=== PATIENT | female | born 1965 | race Caucasian/White ===

== ENCOUNTER → 2017-02-13 | Outpatient (CLI) | payer BC ==
[~2017-02-13] MED LIST: ANAPROX DS550 M1 PO; CLEOCIN300 MG PO; FLEXERIL10 MG PO; INDOCIN50 MG PO; MOBIC7.5 MG PO; PERCOCET 5/31 TABLET PO; PREDNISONE20 MG PO; ROBITUSSIN AC,T10 ML PO; TRAMADOL HCL50 MG PO; VENTOLIN HFA18 GM IH; ZOFRAN4 MG PO
== END | disposition home or self-care (01) ==
LOC: RAD 10:58
DX: R05 Cough (principal)
CPT/HCPCS: 71020

== ENCOUNTER 2017-03-12 21:04 | Emergency (ER) | payer BC ==
[~2017-03-12] VITALS: Ht 157.5 cm; Wt 110.2 kg
[2017-03-12 21:55] LABS: HEMATOCRIT 39.2 % (36.0-46.0); MCH 30.1 PG (29.0-34.0); MCHC 32.9 G/DL (30.0-36.0); MCV 91.6 FL (83-99); MEAN PLAT.VOLUME 10.4 uM^3 (9.5-12.4); PLATELET COUNT 273 K/uL (156-360); RBC DIS.WIDTH-CV 12.3 % (11.8-14.6); RBC DIS.WIDTH-SD 40.8 % (39-53); RED BLOOD COUNT 4.28 M/uL (3.80-5.20); WHITE BLOOD COUNT 12.7 K/uL (4.1-10.2)
[2017-03-12 22:07] LABS: CHLORIDE 103 mEq/L (99-109); POTASSIUM 4.1 mEq/L (3.7-5.4); SODIUM 139 mEq/L (136-147)
[2017-03-12 22:09] LABS: GLUCOSE 295 mg/dL (70-99)
[2017-03-12 22:11] LABS: ANION GAP 13 MEQ/L (2-14); TOTAL BILIRUBIN 0.4 mg/dL (0.0-1.0)
[2017-03-12 22:13] LABS: ALKALINE PHOSPHATASE 84 IU/L (3-129); GFR ESTIMATE (CALCULATED) > 59 mL/min/
[2017-03-12 22:14] LABS: UREA NITROGEN (BUN) 11 mg/dL (9-23)
[2017-03-12 22:16] LABS: LIPASE 49 U/L (1.0-51.0)
[2017-03-12 22:24] LABS: QUANTITATIVE HCG < 4.0 MIU/ML
[2017-03-13] MEDS ORDERED: LOSARTAN POTAS100 MG PO (04:29)
[2017-03-13] MEDS ORDERED: FORTAMET1000 M1 PO (04:30)
[2017-03-13 04:44] VITALS: BP 180/89
[2017-03-13 06:15] VITALS: BP 132/64
[2017-03-13 07:15] VITALS: BP 203/95
[2017-03-13 07:46] LABS: Estimated Average Glucose 226 mg/dL (70-123); HEMOGLOBIN A1c (GLYCOHEMOGLOB) 9.5 % HGB (Below 5.7)
[2017-03-13] MEDS ORDERED: HYDROCODON-ACE1 EAC7 PO (08:54)
[2017-03-13 09:45] LABS: POINT-OF-CARE METER ID UU13113675
[2017-03-13 11:00] VITALS: BP 160/97
[2017-03-13] MEDS ORDERED: SYMBICORT60 INHALA1 IH (14:49)
[2017-03-13 15:10] VITALS: BP 133/69
[2017-03-13 21:44] LABS: POINT-OF-CARE METER ID UU14162508
[2017-03-14 00:10] VITALS: BP 149/68
[2017-03-14 03:35] VITALS: BP 138/74
[2017-03-14 06:43] LABS: POINT-OF-CARE METER ID UU14162508
[2017-03-14 06:57] VITALS: BP 134/79
[2017-03-14 11:16] LABS: POINT-OF-CARE METER ID UU14162508
== END 2017-03-14 16:22 | disposition home or self-care (01) ==
LOC: EME 21:04 → 2EASTP 03-13 01:11 → EDOF 03-13 01:11 → 2EASTP 03-13 01:11
PROVIDERS: Surgery
PROC: 0WUF0JZ Supplement Abdominal Wall with Synthetic Substitute, Open Approach (ICD-10-PCS; principal; 2017-03-13)
DX: K43.6 Other and unspecified ventral hernia with obstruction, without gangrene (principal); J45.909 Unspecified asthma, uncomplicated; Z87.891 Personal history of nicotine dependence; I10 Essential (primary) hypertension; E66.01 Morbid (severe) obesity due to excess calories; Z68.41 Body mass index [BMI] 40.0-44.9, adult; E11.65 Type 2 diabetes mellitus with hyperglycemia; Z88.0 Allergy status to penicillin
CPT/HCPCS: 74177; 80053; 81003; 82948; 83036; 83605; 83690; 84702; 85027; 87040; 88302; 94640; 94640 76; 94799; 99202; 99281; 99285; C1781; G0378; J0690; J1815; J2250; J2270; J2405; J2765; J3010; J7030; J7120

== ENCOUNTER 2017-04-01 10:05 | Emergency (ER) | payer BC ==
[~2017-04-01] VITALS: Ht 157.5 cm; Wt 107.0 kg
[~2017-04-01 10:05] MED LIST changes: +FORTAMET1000 M1 PO; +HYDROCODON-ACE1 EAC7 PO; +LOSARTAN POTAS100 MG PO; +SYMBICORT60 INHALA1 IH
[2017-04-01 10:08] VITALS: BP 128/87
[2017-04-01] MEDS ORDERED: VIBRAMYCIN100 MG PO (12:05)
== END 2017-04-01 12:36 | disposition home or self-care (01) ==
LOC: EME 10:05
PROC: 0H9BXZZ Drainage of Right Upper Arm Skin, External Approach (ICD-10-PCS; principal; 2017-04-01)
DX: L02.411 Cutaneous abscess of right axilla (principal)
CPT/HCPCS: 99281; 99284

== ENCOUNTER 2018-03-16 09:44 | Emergency (ER) | payer OTHER ==
[~2018-03-16] VITALS: Ht 157.5 cm; Wt 102.5 kg
[~2018-03-16 09:44] MED LIST changes: +VIBRAMYCIN100 MG PO
[2018-03-16 11:15] LABS: HEMATOCRIT 42.1 % (36.0-46.0); HEMOGLOBIN 14.4 G/DL (11.9-15.5); MCH 31.4 PG (29.0-34.0); MCHC 34.2 G/DL (30.0-36.0); MCV 91.9 FL (83-99); PLATELET COUNT 252 K/uL (156-360); RBC DIS.WIDTH-CV 12.1 % (11.8-14.6); RBC DIS.WIDTH-SD 40.3 % (39-53); RED BLOOD COUNT 4.58 M/uL (3.80-5.20); WHITE BLOOD COUNT 10.3 K/uL (4.1-10.2)
[2018-03-16 11:53] LABS: CHLORIDE 98 MEQ/L (99-109); CREATININE 0.5 MG/DL (0.6-1.3); GFR ESTIMATE (CALCULATED) > 59 mL/min/; GLUCOSE 246 mg/dL (70-99); SODIUM 137 MEQ/L (136-147); UREA NITROGEN (BUN) 7 mg/dL (9-23)
[2018-03-16] MEDS ORDERED: CLEOCIN300 MG PO (13:30)
[2018-03-16 13:58] VITALS: BP 171/106
== END 2018-03-16 14:01 | disposition home or self-care (01) ==
LOC: EME 09:44
PROVIDERS: Physician Assistant
DX: H00.015 Hordeolum externum left lower eyelid (principal); L03.213 Periorbital cellulitis; S05.02XA Injury of conjunctiva and corneal abrasion without foreign body, left eye, initial encounter; K21.9 Gastro-esophageal reflux disease without esophagitis; I10 Essential (primary) hypertension; J45.909 Unspecified asthma, uncomplicated; F41.9 Anxiety disorder, unspecified; F32.9 Major depressive disorder, single episode, unspecified; Z88.0 Allergy status to penicillin; Z88.5 Allergy status to narcotic agent
CPT/HCPCS: 80048; 85027; 99281; 99284

== ENCOUNTER 2018-04-04 12:45 | Emergency (ER) | payer OTHER ==
[~2018-04-04] VITALS: Ht 157.5 cm; Wt 105.6 kg
[2018-04-04 13:08] LABS: APPEARANCE CLEAR ((CLEAR)); BILIRUBIN NEGATIVE; BLOOD NEGATIVE; COLOR YELLOW ((YELLOW)); GLUCOSE (STRIP) >=500; KETONES NEGATIVE; LEUKOCYTES NEGATIVE; NITRITE NEGATIVE; PROTEIN (STRIP) NEGATIVE; UCUL ADDED? NO; UROBILINOGEN 0.2 MG/DL (0.2-1.0)
[2018-04-04 13:36] LABS: HEMATOCRIT 38.1 % (36.0-46.0); HEMOGLOBIN 12.8 G/DL (11.9-15.5); MCH 31.2 PG (29.0-34.0); MCHC 33.6 G/DL (30.0-36.0); MCV 92.9 FL (83-99); PLATELET COUNT 235 K/uL (156-360); RBC DIS.WIDTH-CV 12.3 % (11.8-14.6); RBC DIS.WIDTH-SD 41.5 % (39-53)
[2018-04-04 13:50] LABS: ALBUMIN 3.7 g/dL (3.2-4.8)
[2018-04-04 13:51] LABS: CHLORIDE 102 mEq/L (99-109); SODIUM 139 mEq/L (136-147)
[2018-04-04 13:53] LABS: GLUCOSE 316 mg/dL (70-99)
[2018-04-04 13:55] LABS: TOTAL BILIRUBIN 0.4 mg/dL (0.0-1.0)
[2018-04-04 13:56] LABS: ALKALINE PHOSPHATASE 91 IU/L (3-129)
[2018-04-04 13:57] LABS: CREATININE 0.9 mg/dL (0.6-1.3); GFR ESTIMATE (CALCULATED) > 59 mL/min/
[2018-04-04 13:58] LABS: AST (GOT) 11 IU/L (2-34); UREA NITROGEN (BUN) 10 mg/dL (9-23)
[2018-04-04 14:00] LABS: ALT (GPT) 28 IU/L (3-49)
[2018-04-04] MEDS ORDERED: NIZORAL 2% CREA15 GM TP (14:49)
[2018-04-04] MEDS ORDERED: DIFLUCAN150 MG PO (14:49)
[2018-04-04 15:24] VITALS: BP 176/95
== END 2018-04-04 15:24 | disposition home or self-care (01) ==
LOC: EME 12:45
DX: B37.3 Candidiasis of vulva and vagina (principal); R10.30 Lower abdominal pain, unspecified; M54.5 Low back pain; G89.29 Other chronic pain; J45.909 Unspecified asthma, uncomplicated; I10 Essential (primary) hypertension; E11.9 Type 2 diabetes mellitus without complications; F32.9 Major depressive disorder, single episode, unspecified; F41.9 Anxiety disorder, unspecified; Z88.0 Allergy status to penicillin; Z88.5 Allergy status to narcotic agent
CPT/HCPCS: 80053; 81003; 85027; 99281; 99284